=== PATIENT | female | born 1955 | race Caucasian/White ===

== ENCOUNTER 2020-05-25 10:43 | Outpatient (CLI) | payer MEDICARE, SELFPAY ==
--- NOTE | ~2020-05-25 | MM_ITS ---
EXAMINATION: MM screening lyle BI w vangie HISTORY: Screening TECHNIQUE: Craniocaudal and mediolateral oblique 3-D tomosynthesis images were obtained and synthetic 2-D images were generated. CAD analysis was submitted and interpreted. COMPARISON: No prior mammogram is available for comparison at this institution. BREAST PARENCHYMAL COMPOSITION: Breast composed of scattered areas of fibroglandular density. FINDINGS: Bilateral asymmetries in the upper outer quadrant of both breasts. There are no suspicious calcifications or architectural distortion. IMPRESSION: 1. Bilateral breast asymmetries. 2. Additional mammographic views and possible breast ultrasound are recommended. BI-RADS Category 0: Incomplete: Needs additional imaging evaluation. Reviewed, dictated and finalized at location A. ICAL THERAPY MANAGER IMPRESSION: 1. Bilateral breast asymmetries. 2. Additional mammographic views and possible breast ultrasound are recommended . BI-RADS Category 0: Incomplete: Needs additional imaging evaluation.
== END 2020-05-25 10:44 | disposition home or self-care (01) ==
LOC: ANHIMG 10:52
PROVIDERS: PCP Nurse Practitioner Family; Visit Provider Nurse Practitioner Family
DX: Z12.31 Encounter for screening mammogram for malignant neoplasm of breast (principal); R92.8 Other abnormal and inconclusive findings on diagnostic imaging of breast
CPT/HCPCS: 77063; 77067

== ENCOUNTER 2020-05-26 11:55 | Outpatient (CLI) | payer MEDICARE, SELFPAY ==
--- NOTE | ~2020-05-26 | MMUS_ITS ---
EXAMINATION: MM diagnostic mammo BI, US breast BI limited HISTORY: Follow-up bilateral breast asymmetries TECHNIQUE: Additional 3-D tomosynthesis images of the breasts were performed and synthetic 2-D images were generated. CAD analysis was submitted and interpreted. High resolution bilateral breast ultraso und was performed. COMPARISON: 05/25/2020 BREAST PARENCHYMAL COMPOSITION: Breast composed of scattered areas of fibroglandular density. FINDINGS: MAMMOGRAPHIC FINDINGS: There are focal intramammary lymph nodes in the upper outer quadrant of the right breast with central fatty hilum. No suspicious masses in the right breast to suggest malignancy. Focal asymmetry is less apparent with spot compression views. ULTRASOUND: Bilateral breast ultrasound: There is heterogeneous echotexture without focal solid or cystic mass. IMPRESSION: 1. No evidence for malignancy in the right breast. Benign intramammary lymph nodes. No sonographic co rrelate. 2. Probable benign focal asymmetry in the upper outer quadrant of the left breast without sonographic correlate. BI-RADS CATEGORY 3-PROBABLY BENIGN FINDING RECOMMENDATION: Six-month follow-up diagnostic left mammogram recommended. Reviewed, dictated and finalized at location A. EYOR BELT OPERATOR IMPRESSION: 1. No evidence for malignancy in the right breast. Benign intramammary lymph no rita. No sonographic correlate. 2. Probable benign focal asymmetry in the upper outer quadrant of the left eli st without sonographic correlate. BI-RADS CATEGORY 3-PROBABLY BENIGN FINDING RECOMMENDATION: Six-month follow-up diagnostic left mammogram recommended.
== END 2020-05-26 11:56 | disposition home or self-care (01) ==
LOC: ANHIMG 11:57
PROVIDERS: PCP Nurse Practitioner Family; Visit Provider Nurse Practitioner Family
DX: R92.8 Other abnormal and inconclusive findings on diagnostic imaging of breast (principal)
CPT/HCPCS: 76642; 77066

== ENCOUNTER 2021-10-23 09:25 | Outpatient (CLI) | payer MEDICARE, MEDICAID, SELFPAY ==
--- NOTE | ~2021-10-23 | MM_ITS ---
EXAMINATION: MM screening lyle BI w vangie HISTORY: Screening TECHNIQUE: Craniocaudal and mediolateral oblique 3-D tomosynthesis images were obtained and synthetic 2-D images were generated. CAD analysis was submitted and interpreted. COMPARISON: Comparison to multiple prior studies sequentially, with oldest reviewed study dated 05/25. BREAST PARENCHYMAL COMPOSITION: Breast composed of scattered areas of fibroglandular density FINDINGS: There is a new 4 mm mass in the lower inner quadrant of the right breast anteriorly. The le ft breast is stable without evidence for malignancy. IMPRESSION: 1. New right breast mass, lower inner quadrant, measuring 4 mm. 2. Additional mammographic views and possible breast ultrasound are recommended. BI-RADS Category 0: Incomplete: Needs additional imaging evaluation. Reviewed, dictated and finalized at location A. IMPRESSION: 1. New right breast mass, lower inner quadrant, measuring 4 mm. 2. Additional mammographic views and possible breast ultrasound are recommended . BI-RADS Category 0: Incomplete: Needs additional imaging evaluation.
== END 2021-10-23 09:26 | disposition home or self-care (01) ==
LOC: ANHIMG 09:28
PROVIDERS: PCP Nurse Practitioner Family; Visit Provider Internal Medicine
DX: Z12.31 Encounter for screening mammogram for malignant neoplasm of breast (principal); R92.8 Other abnormal and inconclusive findings on diagnostic imaging of breast
CPT/HCPCS: 77063; 77067

== ENCOUNTER 2021-12-25 11:21 | Outpatient (CLI) | payer MEDICARE, MEDICAID, SELFPAY ==
--- NOTE | ~2021-12-25 | MMUS_ITS ---
EXAMINATION: MM diagnostic lyle RT w vangie, US breast RT limited HISTORY: Right breast mass on screening mammogram TECHNIQUE: Additional 3-D tomosynthesis images of the right breast were performed and synthetic 2-D i mages were generated. CAD analysis was submitted and interpreted. High resolution limited right breas t ultrasound was performed. COMPARISON: 10/15/2021, 05/26/2020, 05/25/2020 BREAST PARENCHYMAL COMPOSITION: There are scattered areas of fibroglandular density. FINDINGS: MAMMOGRAPHIC FINDINGS: There is a 4 mm round, circumscribed, equal density mass in the anterior third of the inner breast at the 3:00 location 3 cm from the nipple. No suspicious calcification or architectural distortion are identified. ULTRASOUND: There is a 4 mm cyst at the 3:00 location near the nipple corresponding to the mammographic finding i n question. No suspicious cystic or solid mass is identified. IMPRESSION: 1. No mammographic or sonographic evidence of malignancy. 2. Recommend routine screening mammography in one year. BI-RADS Category 2: Benign finding(s). Reviewed, dictated and finalized at location A. IMPRESSION: 1. No mammographic or sonographic evidence of malignancy. 2. Recommend routine screening mammography in one year. BI-RADS Category 2: Benign finding(s).
== END 2021-12-25 11:22 | disposition home or self-care (01) ==
PROVIDERS: PCP Nurse Practitioner Family; Visit Provider Internal Medicine
DX: R92.8 Other abnormal and inconclusive findings on diagnostic imaging of breast (principal)
CPT/HCPCS: 76642; 77061; 77065; G0279

== ENCOUNTER 2023-05-23 13:09 | Emergency (ER) | payer MEDICARE, MEDICAID, SELFPAY ==
[2023-05-23 13:22] VITALS: BP 165/93; PULSE 95; RESP 16; TEMP 36.6; O2SAT 100
--- NOTE | 2023-05-23 13:42 | ED.URI ---
HPI - URI/Sore Throat General Chief Complaint: Upper Respiratory Infection Stated Complaint: facial pain Time Seen by Provider: 05/23/23 13:27 Source: patient and RN notes reviewed Mode of arrival: ambulatory Limitations: no limitations History of Present Illness HPI Narrative: Patient presents today complaining of left-sided facial since last night. Her pain is primarily located in the left upper and lower jaw line that extends to just in front of the left ear. She currently rates her pain 3/10. She has tried no medication for symptoms prior to arrival. Denies any tooth pain. Reports that pain is worse when she has food in her mouth, but is unable to say whether not it is worse when she is chewing. When asked if she has recently been ill, patient states she is unable to answer that as she is chronically congested and take Sudafed every day for her congestion. She denies cough or recent fever. Reports history of TMJ that was diagnosed many years ago. She does have a night custodian that she used last night but is unable to say whether not it was helpful. Related Data Home Medications Medication Instructions Recorded Confirmed aspirin-caffeine 400 mg-32 mg 1 tablet PO Q6H PRN 04/07/19 tablet (Anacin) pseudoephedrine HCl 120 mg 120 mg PO Q12H 04/07/19 05/23/23 tablet,extended release (Sudafed 12 Hour) aspirin-caffeine 400 mg-32 mg 1 tablet PO Q6H PRN 10/08/19 tablet (Anacin) methocarbamol 500 mg tablet 500 mg PO HS 05/23/23 05/23/23 Allergies Allergy/AdvReac Type Severity Reaction Status Date / Time sulfamethizole Allergy Unknown Unknown Verified 05/23/23 13:28 Review of Systems Review of Systems: CONSTITUTIONAL: Denies body aches, fever, chills, or sweats. EYES: Denies visual changes, redness, or discharge. ENT: Denies rhinorrhea, congestion, sore throat, or otalgia. Left-sided facial pain CARDIOVASCULAR: Denies chest pain, palpitations, or edema. RESPIRATORY: Denies cough or dyspnea. GASTROINTESTINAL: Denies abdominal pain, nausea, vomiting, or diarrhea. GENITOURINARY: Denies dysuria or hematuria. SKIN: Denies rash, itching, or wounds. MUSCULOSKELETAL: Denies back pain, joint pain, or myalgia. NEUROLOGIC: Denies headache, numbness, tingling, or weakness. PSYCH: Denies depression or anxiety. [facility] Family History Family History Father Family history of coronary artery disease Family history of cardiovascular disease Mother Patient's mother is in good health Sibling Patient's sister is in good health Patient's brother is in good health Other Cerebrovascular accident Family history of mental disorder Social History Social History Smoking status: Former smoker Second hand tobacco smoke exposure: No Smoking end date: 04/28/83 Alcohol intake: never Comments At time of signature, I have reviewed and agree with nursing past medical, surgical, social and family history unless otherwise noted. Please see nursing chart for further information. There is no relevant family history pertinent to the presenting complaint Exam Narrative: GENERAL: Well-appearing, well-nourished, and in no acute distress. HEAD: Normocephalic, atraumatic. EYES: EOMI. PERRL. No redness or drainage. Conjunctivae normal. ENT: Mucous membranes pink and moist. Nares clear. No rhinorrhea. TMs normal bilaterally. Throat normal. Uvula midline. Teeth are nontender to percussion. Teeth and gums appear normal. Lips normal. No sublingual tenderness. Patient does have tenderness to the left TM joint that extends to the lower jaw line. No facial swelling. No trismus. NECK: Normal AROM. Supple. No lymphadenopathy. CHEST: No respiratory distress. Clear to auscultation. HEART: Regular rate and rhythm. No murmur appreciated. EXTREMITIES: Normal range of motion. No edema. SKIN: W
== END 2023-05-23 13:59 | disposition home or self-care (01) ==
PROVIDERS: Emergency Provider Nurse Practitioner; PCP Internal Medicine
DX: M26.622 Arthralgia of left temporomandibular joint (principal); Z87.891 Personal history of nicotine dependence
CPT/HCPCS: 99213; G0463

== ENCOUNTER 2023-10-15 12:07 | Outpatient (CLI) | payer MEDICARE, MEDICAID, SELFPAY ==
--- NOTE | ~2023-10-15 | XR_ITS ---
EXAMINATION: XR hand RT 2V, XR wrist LT 2V, XR hand LT 2V, XR wrist RT 2V DATE: 10/15/2023 12:32 INDICATION: Joint pain at the bilateral hands and wrists TECHNIQUE: 1. Posteroanterior and lateral views of the left wrist were obtained. 2. Dorsal palmar and lateral views of the left hand were obtained. 3. Posteroanterior and lateral views of the right wrist were obtained. 4. Dorsal palmar and lateral views of the right hand were obtained. COMPARISON: None. FINDINGS: There is mild dorsal and proximal subluxation of the first metacarpal severe osteoarthritis at the fi rst carpometacarpal joint with remodeling of the articular surfaces and associated subarticular cystl kiana changes. Otherwise normal alignment at the bilateral hands and wrists. No fractures. Additional m ild osteoarthritis at the left wrist and bilateral triscaphe joints and minimal osteoarthritis at sev eral of the bilateral interphalangeal joints. Mild soft tissue swelling about the left first carpomet acarpal joint. IMPRESSION: 1. 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 Reviewed, dictated and finalized at location A. IMPRESSION: 1. 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 IMPRESSION: 1. 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 IMPRESSION: 1. 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
--- NOTE | ~2023-10-15 | XR_ITS ---
XR hip LT min 2V 10/15/2023 12:33 Indication: Left hip pain Procedure: 2 views left hip Comparison: 07/17/2015 Findings: There is anatomic alignment. There is osteopenia. No fracture or traumatic malalignment. No soft tissue abnormality. No foreign bodies. Impression: 1: No acute bone or joint abnormality. Reviewed, dictated and finalized at location B. Impression: 1: No acute bone or joint abnormality.
--- NOTE | ~2023-10-15 | XR_ITS ---
XR hip RT min 2V Ordering provider: Marlin Marina MD History: . JT PAIN . Comparison: July 17, 2015 FINDINGS: BONES: No acute fracture or dislocation. HIP JOINT SPACES: Normal. SACROILIAC JOINT SPACES/LUMBAR SPINE: The sacroiliac joint spaces are normal. Mild degenerative leslie es of the visualized lower lumbar spine. PUBIC SYMPHYSIS: Normal. SOFT TISSUES: Normal. IMPRESSION: No acute osseous abnormality pelvis and right hip. Reviewed, dictated and finalized at location A.
--- NOTE | ~2023-10-15 | XR_ITS ---
XR_KNEE1-2VLT_CR, XR_KNEE1-2VRT_CR 10/15/2023 12:33 Indication: Knee pain Procedure: 2 views each knee Comparison: No prior studies for comparison. Findings: There is anatomic alignment. No fracture, subluxation or dislocation. No significant joint space narrowing. No joint effusion. Impression: 1: No significant bone or joint abnormality. Reviewed, dictated and finalized at location B. Impression: 1: No significant bone or joint abnormality. Impression: 1: No significant bone or joint abnormality.
== END 2023-10-15 12:08 | disposition home or self-care (01) ==
LOC: ANHASCIMG 12:11
PROVIDERS: PCP Internal Medicine; Visit Provider Internal Medicine Rheumatology
DX: M25.50 Pain in unspecified joint (principal); M19.042 Primary osteoarthritis, left hand; M19.041 Primary osteoarthritis, right hand; M19.032 Primary osteoarthritis, left wrist; M19.031 Primary osteoarthritis, right wrist
CPT/HCPCS: 73100; 73120; 73502; 73560

== ENCOUNTER 2024-06-06 08:37 | Emergency (ER) | payer MEDICARE, MEDICAID, SELFPAY ==
[2024-06-06 09:24] VITALS: BP 145/87; PULSE 95; RESP 16; TEMP 36.8; O2SAT 100
--- NOTE | 2024-06-06 09:58 | ED.GENADULT ---
HPI - General Adult General Chief complaint: Urogenital-Female Stated complaint: UTI SYMPTOMS Time Seen by Provider: 06/06/24 09:58 Source: patient Mode of arrival: ambulatory Limitations: no limitations History of Present Illness HPI narrative: 5-year-old female patient presents to the [facility] with complaints of urinary tract infection symptoms. Patient states she has started symptoms about 5 days ago. Patient states she gets them frequently and you can usually keep them at [facility] with a hormone cream that she uses however she went out of town and forgot her hormone cream. Patient denies any low back pain, fevers, body aches or chills. Denies any nausea, vomiting or diarrhea. Patient states she had some leftover amoxicillin that she tried to take for the symptoms but it did not help. Related Data Home Medications ?Medication ?Instructions ?Recorded ?Confirmed ?Last Taken ?Type aspirin-caffeine 400 mg-32 mg 1 tablet PO Q6H PRN 04/07/19 Unknown History tablet (Anacin) pseudoephedrine HCl 120 mg 120 mg PO Q12H 04/07/19 05/23/23 Unknown History tablet,extended release (Sudafed 12 Hour) aspirin-caffeine 400 mg-32 mg 1 tablet PO Q6H PRN 10/08/19 Unknown History tablet (Anacin) methocarbamol 500 mg tablet 500 mg PO HS 05/23/23 05/23/23 Unknown History Allergies Allergy/AdvReac Type Severity Reaction Status Date / Time sulfamethizole Allergy Unknown Unknown Verified 05/23/23 13:28 Review of Systems Review of Systems: CONSTITUTIONAL: Denies fever, chills, or sweats. EYES: Denies visual changes, redness, or discharge. ENT: Denies rhinorrhea, congestion, sore throat, or otalgia. CARDIOVASCULAR: Denies chest pain, palpitations, or edema. RESPIRATORY: Denies cough or dyspnea. GASTROINTESTINAL: Denies abdominal pain, nausea, vomiting, or diarrhea. GENITOURINARY: Positive dysuria denies hematuria. SKIN: Denies rash or itching. MUSCULOSKELETAL: Denies back pain, joint pain, or myalgia. NEUROLOGIC: Denies headache, numbness, or weakness. PSYCHIATRIC: Denies anxiety or depression. [facility] Past Medical History Medical History (Updated 06/06/24 @ 10:12 by BUD Webb) Hypercholesteremia Hypertension Recurrent UTI Family History Family History Father Family history of coronary artery disease Family history of cardiovascular disease Mother Patient's mother is in good health Sibling Patient's sister is in good health Patient's brother is in good health Other Cerebrovascular accident Family history of mental disorder Social History Social History Smoking status: Former smoker Second hand tobacco smoke exposure: No Smoking end date: 04/28/83 Alcohol intake: never Comments At the time of my signature I agree with nursing past medical history, surgical, social, and family history. There is no relevant family history pertinent to the presenting complaint. Exam Narrative: GENERAL: Well-appearing, well-nourished, and in no acute distress. HEAD: Normocephalic, atraumatic. EYES: PERRLA and EOMI. ENT: Nares clear, no rhinorrhea or epistaxis. Mucous membranes moist. NECK: Supple. No lymphadenopathy CHEST: Clear to auscultation. No respiratory distress. HEART: Regular rate and rhythm. No murmur heard. Normal peripheral pulses. no CVA tenderness on percussion ABDOMEN: Soft, nontender, nondistended, normal active bowel sounds. EXTREMITIES: Normal range of motion. No edema. SKIN: Warm, dry, no rash. NEURO: No focal deficits. Alert and oriented x3. Course Course Level of Care: Express Care Visit Vital Signs Vital signs: Vital Signs Temperature 36.8 C 06/06/24 09:24 Pulse Rate 95 06/06/24 09:24 Respiratory Rate 16 06/06/24 09:24 Blood Pressure 145/87 H 06/06/24 09:24 Pulse Oximetry 100 06/06/24 09:24 Temperature 36.8 C 06/06/24 09:24 Pulse Rate 95 06/06/24 09:24 Respiratory Rate 16 06/06/24 09:24 Blood Pressure 145/87 H 06/06/24 09:24 Pulse Oximetry 100 06/06/24 09:24 Vital signs reviewed. The patient has been informed that they may have pre-hypertension or Hypertension based on a BP reading in the department. I recommend that the patient call the primary care provider listed on their discharge instructions or a physician of their choice this week to arrange follow up for further evaluation of possible pre-hypertension or Hypertension Medical Decision Making MDM Narrative Medical decision making narrative: Notified patient that based on her urine dip in symptoms she most likely does have a urinary tract infection. We will send the urine off to the lab for culture. We will start her on an antibiotic to help with the symptoms. If the antibiotic needs to be changed we will call her and changes the antibiotic at that time. Differential Diagnosis Differential Diagnosis: differential diagnosis: Uncomplicated lower UTI, uncomplicated UTI, pyelonephritis Vital Signs Vital Signs: Vital Signs Temperature 36.8 C 06/06/24 09:24 Pulse Rate 95 06/06/24 09:24 Respiratory Rate 16 06/06/24 09:24 Blood Pressure 145/87 H 06/06/24 09:24 Pulse Oximetry 100 06/06/24 09:24 Temperature 36.8 C 06/06/24 09:24 Pulse Rate 95 06/06/24 09:24 Respiratory Rate 16 06/06/24 09:24 Blood Pressure 145/87 H 06/06/24 09:24 Pulse Oximetry 100 06/06/24 09:24 Critical Care Time Critical Care Time Critical Care Time: No Discharge Plan Discharge Clinical Impression: Urinary tract infection Patient Disposition: Home, Self-Care Condition: Stable Instructions: Antibiotic Form, Urinary Tract Infection in Women (ED) Additional Instructions: We will send a urine culture off to the lab; if the culture identifies an organism that the prescribed antibiotic will not treat, you will receive a phone call from an urgent care staff member and an appropriate antibiotic will be prescribed. -Your symptoms should begin to improve within a day of starting antibiotics. But you should finish all the antibiotic pills you get. Otherwise your infection might come back. -Also recommend: drink more fluid. It might help flush out germs, and it does no harm -Tylenol/ibuprofen prn for pain or fever -Follow-up with your primary care provider for urine recheck or seek ER visit if condition worsens with high fever, nausea, vomiting and severe back pain. Patient Language: Georgian Prescriptions: New fluconazole 150 mg tablet 150 mg PO ONCE Qty: 1 0RF Rx Instructions: as a single dose nitrofurantoin monohyd/m-cryst [Macrobid] 100 mg capsule 100 mg PO Q12H 5 Days Qty: 10 0RF Rx Instructions: must administer with a meal/food No Action methocarbamol 500 mg Tablet 500 mg PO HS amoxicillin 875 mg tablet 875 mg PO Q12H 7 Days Qty: 14 0RF methylprednisolone [Medrol (Tyrell)] 4 mg tablets,dose pack See Rx Instructions .ROUTE .COMPLEX Qty: 21 0RF Rx Instructions: orally per package directions Anacin 400-32 mg tablet 1 tablet PO Q6H PRN pseudoephedrine HCl [Sudafed 12 Hour] 120 mg tablet extended release 120 mg PO Q12H sumatriptan succinate 100 mg tablet See Rx Instructions PO .COMPLEX Qty: 9 3RF Rx Instructions: Take 1 tab by mouth at the onset of migraine. May repeat after 2 hours if headache returns. DO NOT EXCEED 2 TABS IN 48 HOURS amoxicillin 500 mg capsule 500 mg PO Q8H Qty: 21 0RF Anacin 400-32 mg tablet 1 tablet PO Q6H PRN Follow-up/Referrals: Claudia,MD Natalie [Primary Care Provider] - Time of Disposition: 10:09
[2024-06-06 10:10] LABS: EDUAAPPEAR Cloudy; EDUABILI Negative (Negative); EDUABLOOD 1+ (Negative); EDUACOLOR1 Yellow; EDUAGLUCOSE Negative (Negative); EDUAKETONE Negative (Negative); EDUALEUKO 3+ (Negative); EDUANITRATE Positive (Negative); EDUAPH 5.5; EDUAPROTEIN Negative (Negative); EDUASPGRAVITY 1.015; EDUAUROBILI 0.2
== END 2024-06-06 10:15 | disposition home or self-care (01) ==
PROVIDERS: Emergency Provider Nurse Practitioner Family; PCP Internal Medicine
DX: N39.0 Urinary tract infection, site not specified (principal); E78.00 Pure hypercholesterolemia, unspecified; I10 Essential (primary) hypertension
CPT/HCPCS: 81003; 87086; 87186; 99213; G0463